=== PATIENT | male | born 1955 | race Caucasian/White ===

== ENCOUNTER 2016-12-11 19:35 | Inpatient (IN) | payer OTHER ==
[~2016-12-11] VITALS: Ht 172.7 cm; Wt 100.0 kg
[~2016-12-11 19:35] MED LIST: APIX5TAB PO; FOLI-49 PO; METO-448 PO; VIT1TABL85 PO
[2016-12-11 21:45] VITALS: BP 119/86; RESP 17
[2016-12-11 22:00] VITALS: Ht 172.7 cm; Wt 100.0 kg
[2016-12-11] MEDS: SENNA TAB PO SCH (22:00)
[2016-12-11] MEDS ORDERED: LACTULOSE 30ML CUP PO PRN (22:00)
[2016-12-11] MEDS ORDERED: MAGNESIUM HYDROXIDE 30ML CUP PO PRN (22:00)
[2016-12-11] MEDS ORDERED: ACETAMINOPHEN 325 MG TAB PO PRN (22:00)
[2016-12-11] MEDS ORDERED: BISACODYL 10 MG SUPP PR PRN (22:00)
[2016-12-11] MEDS: DOCUSATE SODIUM 100 MG CAP PO SCH (22:02)
[2016-12-11] MEDS: MYCOPHENOLATE 250 MG CAP PO SCH (22:03)
[2016-12-11] MEDS: PYRIDOSTIGMINE 60 MG TAB PO SCH (22:03)
[2016-12-11] MEDS: APIXABAN 5 MG TABLET PO SCH (22:03)
[2016-12-11 23:48] LABS: ADD UMIC YES; UR BILIRUBIN (Dip) NEGATIVE (NEGATIVE); UR BLOOD (Dip) TRACE (NEGATIVE); UR CLARITY CLEAR (CLEAR); UR COLOR LT. YELLOW (YELLOW); UR GLUCOSE (Dip) NEGATIVE (NEGATIVE); UR KETONES (Dip) NEGATIVE (NEGATIVE); UR LEUKOCYTE ESTERASE (Dip) NEGATIVE (NEGATIVE); UR NITRITE (Dip) NEGATIVE (NEGATIVE); UR TOTAL PROTEIN (Dip) NEGATIVE (NEGATIVE); UR UROBILINOGEN (Dip) 0.2 E.U./dL (0.1-1.0)
[2016-12-12 00:42] LABS: URINE RBCS 0-2 /HPF (0)
[2016-12-12 07:30] VITALS: BP 122/83; RESP 18
[2016-12-12 08:08] LABS: ADD SCAN DIFF NO
[2016-12-12 08:11] LABS: BASOPHILS % 0.1 % (0.0-2.0); EOSINOPHILS # 0.1 10^3/ul (0.0-0.5); EOSINOPHILS % 0.7 % (0.0-7.0); HEMATOCRIT 41.8 % (42.0-52.0); HEMOGLOBIN 13.9 g/dl (14.0-18.0); LYMPHOCYTES # 2.7 10^3/ul (0.8-2.9); LYMPHOCYTES % 27.2 % (15.0-51.0); MEAN CORPUSCULAR HEMOGLOBIN 28.4 pg (29.0-33.0); MEAN CORPUSCULAR HGB CONC 33.3 g/dl (32.0-37.0); MEAN CORPUSCULAR VOLUME 85.5 fl (82.0-101.0); MEAN PLATELET VOLUME 12.2 fl (7.4-10.4); MONOCYTE # 0.7 10^3/ul (0.3-0.9); MONOCYTES % 7.1 % (0.0-11.0); NEUTROPHIL # 6.3 10^3/ul (1.6-7.5); NEUTROPHILS % 63.6 % (39.0-77.0); PLATELET COUNT 149 10^3/UL (140-415); RED BLOOD COUNT 4.89 10^6/ul (4.70-6.10); RED CELL DISTRIBUTION WIDTH 13.7 % (11.5-14.5)
[2016-12-12 08:31] LABS: ALBUMIN 3.6 g/dl (3.3-4.9); ALBUMIN/GLOBULIN RATIO 1.05; BILIRUBIN,INDIRECT 0.2 mg/dl (0-1.1); BILIRUBIN,TOTAL 0.2 mg/dl (0.2-1.3); CALCIUM 9.2 mg/dl (8.4-10.2); CREATININE 0.68 mg/dl (0.61-1.24); POTASSIUM 3.8 mmol/L (3.5-5.1)
[2016-12-12] MEDS: DOCUSATE SODIUM 100 MG CAP PO SCH ×2 (08:43→21:00)
[2016-12-12] MEDS: predniSONE 10 MG TAB PO SCH (08:43)
[2016-12-12] MEDS: APIXABAN 5 MG TABLET PO SCH ×2 (08:43→21:10)
[2016-12-12] MEDS: CHOLECALCIFEROL 1,000 UNIT TAB PO SCH (08:43)
[2016-12-12] MEDS: MYCOPHENOLATE 250 MG CAP PO SCH ×2 (08:43→21:09)
[2016-12-12] MEDS: PYRIDOSTIGMINE 60 MG TAB PO SCH ×4 (08:43→21:10)
[2016-12-12] MEDS: METOPROLOL (XL) 100 MG TAB PO SCH (08:44)
[2016-12-12] MEDS: DIGOXIN 0.125 MG TAB PO SCH (13:17)
--- NOTE | 2016-12-12 13:47 | CONS ---
DATE OF ADMISSION: 12/11/2016 DATE OF CONSULTATION: 12/12/2016 TYPE OF CONSULTATION: Rehabilitation Post-Admission Physician Evaluation REHABILITATION IMPAIRMENT CATEGORY: Myasthenia gravis. ACTIVE COMORBIDITIES: 1. Status post fall with blunt head trauma. 2. Atrial fibrillation, status post ablation. 3. Dysphagia. 4. History of right total hip replacement. 5. History of ankle fracture. 6. Impairments in self-care and mobility. HISTORY OF PRESENT ILLNESS: The patient is a 61-year-old right-handed gentleman who has a history of atrial fibrillation with recent ablation, who was admitted with increased shortness of breath, dysarthria, dysphagia and ptosis. Workup was consistent with myasthenia gravis. The patient did receive a course of IVIG. The patient's hospital course was also notable for his atrial fibrillation and ablation. The patient reportedly had 2 falls in the hospital with blunt head trauma and head CT negative for bleed. The patient has now been cleared to transfer to the rehabilitation unit for comprehensive interdisciplinary rehab care. FUNCTIONAL HISTORY: Prior to recent events, he was independent in self-care tasks and mobility. Currently, the patient requires minimal assist for self- care and mobility tasks. SOCIAL HISTORY: The patient lives at home and hopes to return there upon discharge. PAST MEDICAL HISTORY: 1. Atrial fibrillation, status post ablation. 2. Asthma. 3. History of right hip replacement. 4. History of ankle surgery. CURRENT MEDICATIONS: 1. Cholecalciferol 1000 units p.o. daily. 2. Metoprolol 200 mg p.o. daily. 3. Prednisone 10 mg p.o. daily. 4. Pyridostigmine 60 mg p.o. q.i.d. 5. Digoxin 125 mcg p.o. daily. 6. Colace 100 mg p.o. b.i.d. ALLERGIES: THE PATIENT WITH NO KNOWN DRUG ALLERGIES. PHYSICAL EXAMINATION: VITAL SIGNS: The patient is currently afebrile with stable vital signs. HEENT: Extraocular motions are intact. Oropharynx is clear. NECK: Supple. LUNGS: Clear anteriorly. CARDIAC: S1, S2. ABDOMEN: Soft, nontender, positive bowel sounds. NEUROLOGIC: He is awake and alert. He is oriented to person, hospital and date. He can follow simple 1-step commands. He demonstrates antigravity strength in bilateral upper extremity and lower extremity. He does have some impaired dynamic balance. PLAN: The patient has been admitted for comprehensive interdisciplinary acute rehab and is anticipated to tolerate 3 hours of daily therapy in divided doses for at least 5/7 days a week. Treatment plan will include: 1. Physical therapy to focus on bed mobility, transfers, and household ambulation with the goal of having the patient reach standby assist level. 2. Occupational therapy to focus on hygiene, grooming, dressing, bathing, and toileting activities with the goal of having the patient reach standby assist level. 3. Rehabilitation nursing for carryover of therapeutic interventions, the goal of continent of bowel and bladder, and the goal of patient education with regards to the aforementioned issues. Of note, patient reports he does have some urinary frequency. We will obtain bladder scan and monitor PVRs and I and O catheterization p.r.n. 4. Speech Therapy for dysphagia management ESTIMATED LENGTH OF STAY: 1 week. DISPOSITION GOAL: Home. Rehabilitation Barrier: balance Intervention: Interdisciplinary rehabilitation I acknowledge that I performed a full physical examination on this patient within 24 hours of admission to the rehabilitation unit. I believe the patient is a good candidate for comprehensive interdisciplinary rehab care and is anticipated to make reasonable goals in a reasonable period of time as outlined above. Dictated By: MAURICE SAMUELS/ERIN Conf#: [id number] DID#: [id number] MTDD
--- NOTE | 2016-12-12 14:43 | HP ---
Date/Time of Note Date/Time of Note DATE: 12/12/16 TIME: 14:38 Assessment/Plan VTE Prophylaxis VTE Prophylaxis Intervention: anti-embolic stocking Lines/Catheters Urinary Cath still in place: No Assessment/Plan Chief Complaint/Hosp Course 1. Myasthenia gravis 2. Obesity 3. Hypertension 4. Anemia 5. Atrial fibrillation, controlled status post ablation. 6. HS Asthma. 7. History of right hip replacement. 8. History of ankle surgery. Problems: Assessment/Plan 1. Continue Physical therapy 2. Medical regime unchanged 3. PSA level and US prostate to check HPI/ROS Admit Date/Time Admit Date/Time Dec 11, 2016 at 20:00 Hx of Present Illness 61 years old pt was transferred from outside hospital with new diagnosis Myasthenia Gravis after he was seen there with severe weakness and ptosis. The patient had 2 falls in the hospital with blunt head trauma. He has a history of atrial fibrillation with recent ablation. The patient did receive a course of IVIG. ROS Constitutional: fatigue, improved ENT: no complaints Genitourinary: other (urinating every hour) Neurologic: headache PMH/Family/Social Past Medical History Medical History: congestive heart failure, hypertension (s/p ablation), other ( afib) Past Surgical History Past Surgical Hx: noncontributory Family History Significant Family History: no pertinent family hx Social History Alcohol Use: rarely Smoking Status: Former smoker Drug Use: none Exam/Review of Systems Vital Signs Vitals Vital Signs Date Time Temp Pulse Resp B/P Pulse Ox O2 Delivery O2 Flow Rate FiO2 12/12/16 07:30 98.9 18 122/83 98 12/11/16 21:45 98 Intake and Output 12/11/16 12/11/16 12/12/16 15:00 23:00 07:00 Intake Total 350 ml Output Total 1350 ml Balance -1000 ml Exam Constitutional: alert, oriented Psych: nl mood/affect, no complaints Head: normocephalic Eyes: nl conjunctiva ENMT: nl external ears & nose Neck: supple Genitourinary - Male: nl scrotum Labs Result Diagram: 12/12/1662112/12/16621 Medications Medications Current Medications Cholecalciferol (Vitamin D) 1,000 unit DAILY PO Last administered on 12/12/16t 08:43; Admin Dose 1,000 UNIT; Start 12/12/16 at 09:00 Metoprolol Succinate (Toprol Xl) 200 mg DAILY PO Last administered on 12/12/16 08:44; Admin Dose 200 MG; Start 12/12/16 at 09:00 Mycophenolate Mofetil (Cellcept) 500 mg BID@08,20 PO Last administered on 08:43; Admin Dose 500 MG; Start 12/11/16 at 22:00 Prednisone (Prednisone) 10 mg DAILY PO Last administered on 12/12/16 08:43; Admin Dose 10 MG; Start 12/12/16 at 09:00 Pyridostigmine [place] (Mestinon) 60 mg QID PO Last administered on 12/12/16 13 :17; Admin Dose 60 MG; Start 12/11/16 at 22:00 Apixaban (Eliquis) 5 mg BID PO Last administered on 12/12/16 08:43; Admin Dose 5 MG; Start 12/11/16 at 22:00 Digoxin (Digoxin) 0.125 mg DAILY@13 PO Last administered on 12/12/16 13:17; Admin Dose 0.125 MG; Start 12/12/16 at 13:00 Docusate Sodium (Colace) 100 mg BID PO Last administered on 12/12/16 08:43; Admin Dose 100 MG; Start 12/11/16 at 22:00 Senna (Senokot) 1 tab HS PO ; Start 12/11/16 at 22:00 Acetaminophen (Tylenol Tab) 650 mg Q4H PRN PO PAIN; Start 12/11/16 at 22:00 Bisacodyl (Dulcolax Supp) 10 mg DAILY PRN [place] CONSTIPATION; Start 12/11/16 at 22: 00 Magnesium Hydroxide (Milk Of Mag) 30 ml BID PRN PO CONSTIPATION; Start 12/11/16 at 22:00 Lactulose (Enulose) 20 gm DAILY PRN PO CONSTIPATION; Start 12/11/16 at 22:00 Ferrous Sulfate (Ferrous Sulfate (Ec)) 325 mg DAILY@21 PO ; Start 12/12/16 at 21: 00 PARKER LAMBERT Dec 12, 2016 14:43
[2016-12-12 20:05] VITALS: BP 114/79; RESP 20
[2016-12-12] MEDS: SENNA TAB PO SCH (21:00)
[2016-12-12] MEDS ORDERED: FERROUS SULFATE (EC) 325 MG TAB PO SCH (21:00)
[2016-12-12] MEDS: FERROUS SULFATE (EC) 325 MG TAB PO SCH (21:10)
[2016-12-13] MEDS: MYCOPHENOLATE 250 MG CAP PO SCH ×2 (08:11→21:12)
[2016-12-13] MEDS: METOPROLOL (XL) 100 MG TAB PO SCH (08:12)
[2016-12-13] MEDS: APIXABAN 5 MG TABLET PO SCH ×2 (08:12→21:12)
[2016-12-13] MEDS: CHOLECALCIFEROL 1,000 UNIT TAB PO SCH (08:12)
[2016-12-13 08:13] VITALS: BP 113/79; RESP 18
[2016-12-13] MEDS: PYRIDOSTIGMINE 60 MG TAB PO SCH ×4 (08:13→21:12)
[2016-12-13] MEDS: predniSONE 10 MG TAB PO SCH (08:13)
[2016-12-13] MEDS: DOCUSATE SODIUM 100 MG CAP PO SCH ×2 (08:13→21:00)
[2016-12-13 08:14] VITALS: BP 111/68; PULSE 108; RESP 18
[2016-12-13 08:37] LABS: ADD SCAN DIFF NO
[2016-12-13 08:53] LABS: BASOPHILS % 0.3 % (0.0-2.0); EOSINOPHILS # 0.1 10^3/ul (0.0-0.5); EOSINOPHILS % 0.5 % (0.0-7.0); HEMATOCRIT 44.2 % (42.0-52.0); HEMOGLOBIN 14.6 g/dl (14.0-18.0); LYMPHOCYTES # 2.4 10^3/ul (0.8-2.9); LYMPHOCYTES % 23.9 % (15.0-51.0); MEAN CORPUSCULAR HEMOGLOBIN 28.1 pg (29.0-33.0); MEAN CORPUSCULAR VOLUME 85.2 fl (82.0-101.0); MEAN PLATELET VOLUME 11.6 fl (7.4-10.4); MONOCYTE # 0.6 10^3/ul (0.3-0.9); MONOCYTES % 5.6 % (0.0-11.0); NEUTROPHILS % 68.6 % (39.0-77.0); PLATELET COUNT 161 10^3/UL (140-415); RED BLOOD COUNT 5.19 10^6/ul (4.70-6.10); RED CELL DISTRIBUTION WIDTH 13.9 % (11.5-14.5); WHITE BLOOD COUNT 10.2 10^3/ul (4.8-10.8)
[2016-12-13 09:04] LABS: CALCIUM 9.1 mg/dl (8.4-10.2); CREATININE 0.81 mg/dl (0.61-1.24); POTASSIUM 3.5 mmol/L (3.5-5.1)
--- NOTE | 2016-12-13 11:58 | PN ---
Date/Time of Note Date/Time of Note DATE: 12/13/16 TIME: 11:57 Assessment/Plan VTE Prophylaxis VTE Prophylaxis Intervention: ambulation Lines/Catheters Urinary Cath still in place: No Assessment/Plan Chief Complaint/Hosp Course 1. Myasthenia gravis 2. Obesity 3. Hypertension 4. Anemia 5. Atrial fibrillation, controlled status post ablation. 6. HS Asthma. 7. History of right hip replacement. 8. History of ankle surgery. Problems: Assessment/Plan 1. US prostate PSA 3.6, start flomax 0/4 mg by mouth Subjective 24 Hr Interval Summary Constitutional: improved, no complaints Exam/Review of Systems Vital Signs Vitals Vital Signs Date Time Temp Pulse Resp B/P Pulse Ox O2 Delivery O2 Flow Rate FiO2 12/13/16 08:14 108 18 111/68 97 12/13/16 08:13 97.8 Intake and Output 12/12/16 12/12/16 12/13/16 15:00 23:00 07:00 Intake Total 820 ml 350 ml Output Total 1225 ml Balance 820 ml -875 ml Exam Constitutional: alert, oriented ENMT: nl external ears & nose Neck: non-tender, supple Respiratory: clear to auscultation Cardiovascular: regular rate and rhythm Musculoskeletal: other (slow) Results Result Diagram: 12/13/16 0820 12/13/16 0830 Results 24 hrs Laboratory Tests Test 12/13/16 08:20 12/13/16 08:30 White Blood Count 10.2 Red Blood Count 5.19 Hemoglobin 14.6 Hematocrit 44.2 Mean Corpuscular Volume 85.2 Mean Corpuscular Hemoglobin 28.1 L Mean Corpuscular Hemoglobin Concent 33.0 Red Cell Distribution Width 13.9 Platelet Count 161 Mean Platelet Volume 11.6 H Neutrophils % 68.6 Lymphocytes % 23.9 Monocytes % 5.6 Eosinophils % 0.5 Basophils % 0.3 Nucleated Red Blood Cells % 0.0 Neutrophils # 7.0 Lymphocytes # 2.4 Monocytes # 0.6 Eosinophils # 0.1 Basophils # 0.0 Nucleated Red Blood Cells # 0.0 Sodium Level 140 Potassium Level 3.5 Chloride Level 108 Carbon Dioxide Level 26 Anion Gap 10 Blood Urea Nitrogen 15 Creatinine 0.81 Glucose Level 134 # Calcium Level 9.1 Prostate Specific Antigen 3.6 Medications Medications Current Medications Cholecalciferol (Vitamin D) 1,000 unit DAILY PO Last administered on 12/13/16 08:12; Admin Dose 1,000 UNIT; Start 12/12/16 at 09:00 Metoprolol Succinate (Toprol Xl) 200 mg DAILY PO Last administered on 08:12; Admin Dose 200 MG; Start 12/12/16 at 09:00 Mycophenolate Mofetil (Cellcept) 500 mg BID@08,20 PO Last administered on 08:11; Admin Dose 500 MG; Start 12/11/16 at 22:00 Prednisone (Prednisone) 10 mg DAILY PO Last administered on 12/13/16 08:13; Admin Dose 10 MG; Start 12/12/16 at 09:00 Pyridostigmine [place] (Mestinon) 60 mg QID PO Last administered on 12/13/16 08:13; Admin Dose 60 MG; Start 12/11/16 at 22:00 Apixaban (Eliquis) 5 mg BID PO Last administered on 12/13/16 08:12; Admin Dose 5 MG; Start 12/11/16 at 22:00 Digoxin (Digoxin) 0.125 mg DAILY@13 PO Last administered on 12/12/16 13:17; Admin Dose 0.125 MG; Start 12/12/16 at 13:00 Docusate Sodium (Colace) 100 mg BID PO Last administered on 12/12/16 08:43; Admin Dose 100 MG; Start 12/11/16 at 22:00 Senna (Senokot) 1 tab HS PO ; Start 12/11/16 at 22:00 Acetaminophen (Tylenol Tab) 650 mg Q4H PRN PO PAIN; Start 12/11/16 at 22:00 Bisacodyl (Dulcolax Supp) 10 mg DAILY PRN [place] CONSTIPATION; Start 12/11/16 at 22: 00 Magnesium Hydroxide (Milk Of Mag) 30 ml BID PRN PO CONSTIPATION; Start 12/11/16 at 22:00 Lactulose (Enulose) 20 gm DAILY PRN PO CONSTIPATION; Start 12/11/16 at 22:00 Ferrous Sulfate (Ferrous Sulfate (Ec)) 325 mg DAILY@21 PO Last administered on 12/12/16 21:10; Admin Dose 325 MG; Start 12/12/16 at 21:00 Tamsulosin HCl (Flomax) 0.4 mg HS PO ; Start 12/13/16 at 21:00 PARKER LAMBERT Dec 13, 2016 11:58
--- NOTE | 2016-12-13 12:05 | CONS ---
Date/Time of Note Date/Time of Note DATE: 12/13/16 TIME: 12:05 Consult Date/Type/Reason Admit Date/Time Dec 11, 2016 at 20:00 Initial Consult Date Objective Vital Signs Date Time Temp Pulse Resp B/P Pulse Ox O2 Delivery O2 Flow Rate FiO2 12/13/16 08:14 108 18 111/68 97 12/13/16 08:13 97.8 Intake and Output 12/12/16 12/12/16 12/13/16 15:00 23:00 07:00 Intake Total 820 ml 350 ml Output Total 1225 ml Balance 820 ml -875 ml Results/Medications Result Diagram: 12/13/16 0820 12/13/16 0830 Results 24 hrs Laboratory Tests Test 12/13/16 08:20 12/13/16 08:30 White Blood Count 10.2 Red Blood Count 5.19 Hemoglobin 14.6 Hematocrit 44.2 Mean Corpuscular Volume 85.2 Mean Corpuscular Hemoglobin 28.1 L Mean Corpuscular Hemoglobin Concent 33.0 Red Cell Distribution Width 13.9 Platelet Count 161 Mean Platelet Volume 11.6 H Neutrophils % 68.6 Lymphocytes % 23.9 Monocytes % 5.6 Eosinophils % 0.5 Basophils % 0.3 Nucleated Red Blood Cells % 0.0 Neutrophils # 7.0 Lymphocytes # 2.4 Monocytes # 0.6 Eosinophils # 0.1 Basophils # 0.0 Nucleated Red Blood Cells # 0.0 Sodium Level 140 Potassium Level 3.5 Chloride Level 108 Carbon Dioxide Level 26 Anion Gap 10 Blood Urea Nitrogen 15 Creatinine 0.81 Glucose Level 134 # Calcium Level 9.1 Prostate Specific Antigen 3.6 Medications Current Medications Cholecalciferol (Vitamin D) 1,000 unit DAILY PO Last administered on 12/13/16 08:12; Admin Dose 1,000 UNIT; Start 12/12/16 at 09:00 Metoprolol Succinate (Toprol Xl) 200 mg DAILY PO Last administered on 08:12; Admin Dose 200 MG; Start 12/12/16 at 09:00 Mycophenolate Mofetil (Cellcept) 500 mg BID@08,20 PO Last administered on 08:11; Admin Dose 500 MG; Start 12/11/16 at 22:00 Prednisone (Prednisone) 10 mg DAILY PO Last administered on 12/13/16 08:13; Admin Dose 10 MG; Start 12/12/16 at 09:00 Pyridostigmine [place] (Mestinon) 60 mg QID PO Last administered on 12/13/16 08:13; Admin Dose 60 MG; Start 12/11/16 at 22:00 Apixaban (Eliquis) 5 mg BID PO Last administered on 12/13/16 08:12; Admin Dose 5 MG; Start 12/11/16 at 22:00 Digoxin (Digoxin) 0.125 mg DAILY@13 PO Last administered on 12/12/16 13:17; Admin Dose 0.125 MG; Start 12/12/16 at 13:00 Docusate Sodium (Colace) 100 mg BID PO Last administered on 12/12/16 08:43; Admin Dose 100 MG; Start 12/11/16 at 22:00 Senna (Senokot) 1 tab HS PO ; Start 12/11/16 at 22:00 Acetaminophen (Tylenol Tab) 650 mg Q4H PRN PO PAIN; Start 12/11/16 at 22:00 Bisacodyl (Dulcolax Supp) 10 mg DAILY PRN [place] CONSTIPATION; Start 12/11/16 at 22: 00 Magnesium Hydroxide (Milk Of Mag) 30 ml BID PRN PO CONSTIPATION; Start 12/11/16 at 22:00 Lactulose (Enulose) 20 gm DAILY PRN PO CONSTIPATION; Start 12/11/16 at 22:00 Ferrous Sulfate (Ferrous Sulfate (Ec)) 325 mg DAILY@21 PO Last administered on 12/12/16 21:10; Admin Dose 325 MG; Start 12/12/16 at 21:00 Tamsulosin HCl (Flomax) 0.4 mg HS PO ; Start 12/13/16 at 21:00 Assessment/Plan Additional Assessment/Plan Rehab - Myasthenia gravis. Continue rehab Status post fall with blunt head trauma. Atrial fibrillation, status post ablation. Dysphagia. History of right total hip replacement. History of ankle fracture. MAURICE OSBORNE MD Dec 13, 2016 12:05
[2016-12-13] MEDS: DIGOXIN 0.125 MG TAB PO SCH (12:17)
[2016-12-13 12:18] VITALS: BP 115/87; PULSE 66; RESP 16
--- NOTE | 2016-12-13 14:34 | RADRPT ---
PROCEDURE: US male Pelvis. CLINICAL INDICATION: Prostate enlargement, filling bladder @ 1240, nwc TECHNIQUE: Multiple sonographic images of the pelvis were obtained. The images were reviewed on a PACS workstation. COMPARISON: None. FINDINGS: The prostate is enlarged in size measuring 5.4 x 3.8 x 4.8 cm. The prostatic volume is 52 cc. The bladder is grossly unremarkable. IMPRESSION: Enlarged prostate with a volume of 52 cc. Physician Billie Date Time Electronically viewed and signed by Physician Billie on 12/13/2016 14:33 RA/
[2016-12-13 20:00] VITALS: BP 112/70; RESP 20
[2016-12-13] MEDS: SENNA TAB PO SCH (21:00)
[2016-12-13] MEDS: TAMSULOSIN (SR) 0.4 MG CAP PO SCH (21:12)
[2016-12-13] MEDS: FERROUS SULFATE (EC) 325 MG TAB PO SCH (21:12)
[2016-12-14 08:00] VITALS: BP 114/77; PULSE 105; RESP 18
[2016-12-14] MEDS: APIXABAN 5 MG TABLET PO SCH ×2 (08:21→20:21)
[2016-12-14] MEDS: MYCOPHENOLATE 250 MG CAP PO SCH ×2 (08:21→20:21)
[2016-12-14] MEDS: predniSONE 10 MG TAB PO SCH (08:22)
[2016-12-14] MEDS: PYRIDOSTIGMINE 60 MG TAB PO SCH ×4 (08:23→20:21)
[2016-12-14] MEDS: CHOLECALCIFEROL 1,000 UNIT TAB PO SCH (08:23)
[2016-12-14] MEDS: METOPROLOL (XL) 100 MG TAB PO SCH (08:23)
[2016-12-14] MEDS: DOCUSATE SODIUM 100 MG CAP PO SCH ×2 (09:00→20:21)
[2016-12-14] MEDS: DIGOXIN 0.125 MG TAB PO SCH (13:06)
[2016-12-14] MEDS: TAMSULOSIN (SR) 0.4 MG CAP PO SCH (20:21)
[2016-12-14] MEDS: SENNA TAB PO SCH (20:21)
[2016-12-14] MEDS: FERROUS SULFATE (EC) 325 MG TAB PO SCH (20:21)
[2016-12-14 20:57] VITALS: BP 134/85; RESP 18
[2016-12-15 07:30] VITALS: BP 120/78; RESP 18
[2016-12-15] MEDS: PYRIDOSTIGMINE 60 MG TAB PO SCH ×4 (07:40→22:11)
[2016-12-15] MEDS: MYCOPHENOLATE 250 MG CAP PO SCH ×2 (07:40→20:21)
[2016-12-15] MEDS: predniSONE 10 MG TAB PO SCH (07:41)
[2016-12-15] MEDS: APIXABAN 5 MG TABLET PO SCH ×2 (07:41→20:21)
[2016-12-15] MEDS: CHOLECALCIFEROL 1,000 UNIT TAB PO SCH (07:42)
[2016-12-15] MEDS: METOPROLOL (XL) 100 MG TAB PO SCH (07:44)
[2016-12-15] MEDS: DOCUSATE SODIUM 100 MG CAP PO SCH ×2 (09:00→20:24)
--- NOTE | 2016-12-15 12:22 | CONS ---
Date/Time of Note Date/Time of Note DATE: 12/15/16 TIME: 12:22 Consult Date/Type/Reason Admit Date/Time Dec 11, 2016 at 20:00 Objective Vital Signs Date Time Temp Pulse Resp B/P Pulse Ox O2 Delivery O2 Flow Rate FiO2 12/14/16 20:57 97.5 81 18 134/85 96 12/14/16 08:00 Room Air Intake and Output 12/14/16 12/14/16 12/15/16 15:00 23:00 07:00 Intake Total 450 ml Balance 450 ml INTERDISCIPLINARY TEAM CONFERENCE BOWEL- Cont BLADDER-Cont SKIN- intact OT- DRESSING-s BATHING-s TOILETING-s PT- BED MOBILITY-s TRANSFERS-s AMBULATION-s 300 feet W.C. MOBILITY A/P- Interdisciplinary team conference held today. Please see interdisciplinary sheet. Working toward d.c. on 12/16 with post discharge follow up of physical therapy, occupational therapy. Results/Medications Result Diagram: 12/13/16 0820 12/13/16 0830 Medications Current Medications Cholecalciferol (Vitamin D) 1,000 unit DAILY PO Last administered on 12/15/16 07:42; Admin Dose 1,000 UNIT; Start 12/12/16 at 09:00 Metoprolol Succinate (Toprol Xl) 200 mg DAILY PO Last administered on 07:44; Admin Dose 200 MG; Start 12/12/16 at 09:00 Mycophenolate Mofetil (Cellcept) 500 mg BID@08,20 PO Last administered on 07:40; Admin Dose 500 MG; Start 12/11/16 at 22:00 Prednisone (Prednisone) 10 mg DAILY PO Last administered on 12/15/16 07:41; Admin Dose 10 MG; Start 12/12/16 at 09:00 Apixaban (Eliquis) 5 mg BID PO Last administered on 12/15/16 07:41; Admin Dose 5 MG; Start 12/11/16 at 22:00 Digoxin (Digoxin) 0.125 mg DAILY@13 PO Last administered on 12/14/16 13:06; Admin Dose 0.125 MG; Start 12/12/16 at 13:00 Docusate Sodium (Colace) 100 mg BID PO Last administered on 12/14/16 20:21; Admin Dose 100 MG; Start 12/11/16 at 22:00 Senna (Senokot) 1 tab HS PO Last administered on 12/14/16 20:21; Admin Dose 1 TAB; Start 12/11/16 at 22:00 Acetaminophen (Tylenol Tab) 650 mg Q4H PRN PO PAIN; Start 12/11/16 at 22:00 Bisacodyl (Dulcolax Supp) 10 mg DAILY PRN [place] CONSTIPATION; Start 12/11/16 at 22: 00 Magnesium Hydroxide (Milk Of Mag) 30 ml BID PRN PO CONSTIPATION; Start 12/11/16 at 22:00 Lactulose (Enulose) 20 gm DAILY PRN PO CONSTIPATION; Start 12/11/16 at 22:00 Ferrous Sulfate (Ferrous Sulfate (Ec)) 325 mg DAILY@21 PO Last administered on 12/14/16 20:21; Admin Dose 325 MG; Start 12/12/16 at 21:00 Tamsulosin HCl (Flomax) 0.4 mg HS PO Last administered on 12/14/16 20:21; Admin Dose 0.4 MG; Start 12/13/16 at 21:00 Pyridostigmine [place] (Mestinon) 60 mg QID@06,12,18,22 PO ; Start 12/15/16 at 12:00 MAURICE OSBORNE MD Dec 15, 2016 12:22 MAURICE OSBORNE MD Dec 15, 2016 12:22
[2016-12-15] MEDS: DIGOXIN 0.125 MG TAB PO SCH (12:28)
--- NOTE | 2016-12-15 17:50 | PN ---
Date/Time of Note Date/Time of Note DATE: 12/15/16 TIME: 17:49 Assessment/Plan VTE Prophylaxis VTE Prophylaxis Intervention: other Lines/Catheters Urinary Cath still in place: No Assessment/Plan Chief Complaint/Hosp Course 1. Myasthenia gravis 2. Obesity 3. Hypertension 4. Anemia 5. Atrial fibrillation,HX S/P ABLATION 6. HS Asthma. 7. History of right hip replacement. 8. History of ankle surgery PLAN PT OT Problems: Subjective 24 Hr Interval Summary Cardiovascular: no complaints Gastrointestinal: no complaints Musculoskeletal: other (WEAKNESS BETTER) Exam/Review of Systems Vital Signs Vitals Vital Signs Date Time Temp Pulse Resp B/P Pulse Ox O2 Delivery O2 Flow Rate FiO2 12/15/16 07:30 97.8 100 18 120/78 98 12/14/16 08:00 Room Air Intake and Output 12/14/16 12/14/16 12/15/16 15:00 23:00 07:00 Intake Total 450 ml Balance 450 ml Exam Neck: supple Respiratory: clear to auscultation Cardiovascular: regular rate and rhythm Gastrointestinal: soft Musculoskeletal: nl extremities to inspection Results Result Diagram: 12/13/16 0820 12/13/16 0830 Medications Medications Current Medications Cholecalciferol (Vitamin D) 1,000 unit DAILY PO Last administered on 12/15/16 07:42; Admin Dose 1,000 UNIT; Start 12/12/16 at 09:00 Metoprolol Succinate (Toprol Xl) 200 mg DAILY PO Last administered on 07:44; Admin Dose 200 MG; Start 12/12/16 at 09:00 Mycophenolate Mofetil (Cellcept) 500 mg BID@08,20 PO Last administered on 07:40; Admin Dose 500 MG; Start 12/11/16 at 22:00 Prednisone (Prednisone) 10 mg DAILY PO Last administered on 12/15/16 07:41; Admin Dose 10 MG; Start 12/12/16 at 09:00 Apixaban (Eliquis) 5 mg BID PO Last administered on 12/15/16 07:41; Admin Dose 5 MG; Start 12/11/16 at 22:00 Digoxin (Digoxin) 0.125 mg DAILY@13 PO Last administered on 12/15/16 12:28; Admin Dose 0.125 MG; Start 12/12/16 at 13:00 Docusate Sodium (Colace) 100 mg BID PO Last administered on 12/14/16 20:21; Admin Dose 100 MG; Start 12/11/16 at 22:00 Senna (Senokot) 1 tab HS PO Last administered on 12/14/16 20:21; Admin Dose 1 TAB; Start 12/11/16 at 22:00 Acetaminophen (Tylenol Tab) 650 mg Q4H PRN PO PAIN; Start 12/11/16 at 22:00 Bisacodyl (Dulcolax Supp) 10 mg DAILY PRN [place] CONSTIPATION; Start 12/11/16 at 22: 00 Magnesium Hydroxide (Milk Of Mag) 30 ml BID PRN PO CONSTIPATION; Start 12/11/16 at 22:00 Lactulose (Enulose) 20 gm DAILY PRN PO CONSTIPATION; Start 12/11/16 at 22:00 Ferrous Sulfate (Ferrous Sulfate (Ec)) 325 mg DAILY@21 PO Last administered on 12/14/16 20:21; Admin Dose 325 MG; Start 12/12/16 at 21:00 Tamsulosin HCl (Flomax) 0.4 mg HS PO Last administered on 12/14/16 20:21; Admin Dose 0.4 MG; Start 12/13/16 at 21:00 Pyridostigmine [place] (Mestinon) 60 mg QID@06,,18,22 PO Last administered on 12/15/16 17:42; Admin Dose 60 MG; Start 12/15/16 at 12:00 ALISHA STILL MD Dec 15, 2016 17:50
--- NOTE | 2016-12-15 17:51 | PN ---
Date/Time of Note Date/Time of Note DATE: 12/15/16 TIME: 17:50 Assessment/Plan VTE Prophylaxis VTE Prophylaxis Intervention: other Lines/Catheters Urinary Cath still in place: No Assessment/Plan Chief Complaint/Hosp Course 1. Myasthenia gravis BETTER 2. DECONDITIONING 3. Hypertension 4. Anemia 5. Atrial fibrillation,HX S/P ABLATION 6. HS Asthma. 7. History of right hip replacement. 8. History of ankle surgery PLAN PT OT Problems: Subjective 24 Hr Interval Summary Subjective hx not possible: other (PT SEEN QD NOTE MISSED ) Exam/Review of Systems Vital Signs Vitals Vital Signs Date Time Temp Pulse Resp B/P Pulse Ox O2 Delivery O2 Flow Rate FiO2 12/15/16 07:30 97.8 100 18 120/78 98 12/14/16 08:00 Room Air Intake and Output 12/14/16 12/14/16 12/15/16 15:00 23:00 07:00 Intake Total 450 ml Balance 450 ml Exam Respiratory: clear to auscultation Cardiovascular: regular rate and rhythm Gastrointestinal: soft Musculoskeletal: nl extremities to inspection Extremities: normal pulses Results Result Diagram: 12/13/16 0820 12/13/16 0830 Medications Medications Current Medications Cholecalciferol (Vitamin D) 1,000 unit DAILY PO Last administered on 12/15/16 07:42; Admin Dose 1,000 UNIT; Start 12/12/16 at 09:00 Metoprolol Succinate (Toprol Xl) 200 mg DAILY PO Last administered on 07:44; Admin Dose 200 MG; Start 12/12/16 at 09:00 Mycophenolate Mofetil (Cellcept) 500 mg BID@08,20 PO Last administered on 07:40; Admin Dose 500 MG; Start 12/11/16 at 22:00 Prednisone (Prednisone) 10 mg DAILY PO Last administered on 12/15/16 07:41; Admin Dose 10 MG; Start 12/12/16 at 09:00 Apixaban (Eliquis) 5 mg BID PO Last administered on 12/15/16 07:41; Admin Dose 5 MG; Start 12/11/16 at 22:00 Digoxin (Digoxin) 0.125 mg DAILY@13 PO Last administered on 12/15/16 12:28; Admin Dose 0.125 MG; Start 12/12/16 at 13:00 Docusate Sodium (Colace) 100 mg BID PO Last administered on 12/14/16 20:21; Admin Dose 100 MG; Start 12/11/16 at 22:00 Senna (Senokot) 1 tab HS PO Last administered on 12/14/16 20:21; Admin Dose 1 TAB; Start 12/11/16 at 22:00 Acetaminophen (Tylenol Tab) 650 mg Q4H PRN PO PAIN; Start 12/11/16 at 22:00 Bisacodyl (Dulcolax Supp) 10 mg DAILY PRN [place] CONSTIPATION; Start 12/11/16 at 22: 00 Magnesium Hydroxide (Milk Of Mag) 30 ml BID PRN PO CONSTIPATION; Start 12/11/16 at 22:00 Lactulose (Enulose) 20 gm DAILY PRN PO CONSTIPATION; Start 12/11/16 at 22:00 Ferrous Sulfate (Ferrous Sulfate (Ec)) 325 mg DAILY@21 PO Last administered on 12/14/16 20:21; Admin Dose 325 MG; Start 12/12/16 at 21:00 Tamsulosin HCl (Flomax) 0.4 mg HS PO Last administered on 12/14/16 20:21; Admin Dose 0.4 MG; Start 12/13/16 at 21:00 Pyridostigmine [place] (Mestinon) 60 mg QID@06,12,18,22 PO Last administered on 12/15/16 17:42; Admin Dose 60 MG; Start 12/15/16 at 12:00 ALISHA STILL MD Dec 15, 2016 17:51
[2016-12-15 20:10] VITALS: BP 126/85; RESP 18
[2016-12-15] MEDS: TAMSULOSIN (SR) 0.4 MG CAP PO SCH (20:21)
[2016-12-15] MEDS: FERROUS SULFATE (EC) 325 MG TAB PO SCH (20:21)
[2016-12-15] MEDS: SENNA TAB PO SCH (20:24)
[2016-12-16] MEDS: PYRIDOSTIGMINE 60 MG TAB PO SCH ×2 (05:27→12:26)
[2016-12-16] MEDS: predniSONE 10 MG TAB PO SCH (08:11)
[2016-12-16] MEDS: DOCUSATE SODIUM 100 MG CAP PO SCH (08:12)
[2016-12-16] MEDS: MYCOPHENOLATE 250 MG CAP PO SCH (08:12)
[2016-12-16] MEDS: APIXABAN 5 MG TABLET PO SCH (08:12)
[2016-12-16] MEDS: METOPROLOL (XL) 100 MG TAB PO SCH (08:12)
[2016-12-16] MEDS: CHOLECALCIFEROL 1,000 UNIT TAB PO SCH (08:13)
[2016-12-16 08:25] VITALS: BP 140/86; RESP 18
--- NOTE | 2016-12-16 09:44 | DS ---
DATE OF ADMISSION: 12/11/2016 DATE OF DISCHARGE: 12/16/2016 ADMISSION DIAGNOSES: 1. Myasthenia gravis. 2. Status post fall with blunt head trauma. 3. Atrial fibrillation, status post ablation. 4. Dysphagia. 5. History of right total hip replacement. 6. History of ankle fracture. 7. Impairments in self-care and mobility. DISCHARGE DIAGNOSES: 1. Myasthenia gravis. 2. Status post fall with blunt head trauma. 3. Atrial fibrillation, status post ablation. 4. Dysphagia. 5. History of right total hip replacement. 6. History of ankle fracture. 7. Improvements in self-care and mobility. HOSPITAL COURSE: The patient was admitted for comprehensive interdisciplinary acute rehab and made excellent functional gains during the course of the stay. The patient progressed from an initial mi nimal assist for self-care and mobility tasks and progressed to the point of modified independent fo r all areas of self-care and mobility, including ambulating over 300 feet with the use of a front-wh eel walker. The patient is being discharged home with recommendation of home health physical therap y and occupational therapy followup. DISCHARGE MEDICATIONS: Per the medication reconciliation sheet. CONDITION ON DISCHARGE: Stable. Dictated By: MAURICE SAMUELS/ERIN Conf#: [id number] DID#: [id number]
--- NOTE | 2016-12-16 12:09 | CONS ---
Date/Time of Note Date/Time of Note DATE: 12/16/16 TIME: 12:09 Consult Date/Type/Reason Admit Date/Time Dec 11, 2016 at 20:00 Objective Vital Signs Date Time Temp Pulse Resp B/P Pulse Ox O2 Delivery O2 Flow Rate FiO2 12/16/16 08:25 97.9 100 18 140/86 96 12/14/16 08:00 Room Air Intake and Output 12/15/16 12/15/16 12/16/16 15:00 23:00 07:00 Intake Total 320 ml 650 ml Balance 320 ml 650 ml Results/Medications Result Diagram: 12/13/16 0820 12/13/16 0830 Medications Current Medications Cholecalciferol (Vitamin D) 1,000 unit DAILY PO Last administered on 12/16/16 08:13; Admin Dose 1,000 UNIT; Start 12/12/16 at 09:00 Metoprolol Succinate (Toprol Xl) 200 mg DAILY PO Last administered on 08:12; Admin Dose 200 MG; Start 12/12/16 at 09:00 Mycophenolate Mofetil (Cellcept) 500 mg BID@08,20 PO Last administered on 08:12; Admin Dose 500 MG; Start 12/11/16 at 22:00 Prednisone (Prednisone) 10 mg DAILY PO Last administered on 12/16/16 08:11; Admin Dose 10 MG; Start 12/12/16 at 09:00 Apixaban (Eliquis) 5 mg BID PO Last administered on 12/16/16 08:12; Admin Dose 5 MG; Start 12/11/16 at 22:00 Digoxin (Digoxin) 0.125 mg DAILY@13 PO Last administered on 12/15/16 12:28; Admin Dose 0.125 MG; Start 12/12/16 at 13:00 Docusate Sodium (Colace) 100 mg BID PO Last administered on 12/16/16 08:12; Admin Dose 100 MG; Start 12/11/16 at 22:00 Senna (Senokot) 1 tab HS PO Last administered on 12/14/16 20:21; Admin Dose 1 TAB; Start 12/11/16 at 22:00 Acetaminophen (Tylenol Tab) 650 mg Q4H PRN PO PAIN; Start 12/11/16 at 22:00 Bisacodyl (Dulcolax Supp) 10 mg DAILY PRN [place] CONSTIPATION; Start 12/11/16 at 22: 00 Magnesium Hydroxide (Milk Of Mag) 30 ml BID PRN PO CONSTIPATION; Start 12/11/16 at 22:00 Lactulose (Enulose) 20 gm DAILY PRN PO CONSTIPATION; Start 12/11/16 at 22:00 Ferrous Sulfate (Ferrous Sulfate (Ec)) 325 mg DAILY@21 PO Last administered on 12/15/16 20:21; Admin Dose 325 MG; Start 12/12/16 at 21:00 Tamsulosin HCl (Flomax) 0.4 mg HS PO Last administered on 12/15/16 20:21; Admin Dose 0.4 MG; Start 12/13/16 at 21:00 Pyridostigmine [place] (Mestinon) 60 mg QID@06,12,18,22 PO Last administered on 12/16/16 05:27; Admin Dose 60 MG; Start 12/15/16 at 12:00 MAURICE OSBORNE MD Dec 16, 2016 12:09
[2016-12-16] MEDS: DIGOXIN 0.125 MG TAB PO SCH (12:26)
== END 2016-12-16 13:51 | disposition home health service (06) | DRG 57 ==
LOC: VRC 20:00
PROVIDERS: ADMIT Physical Medicine & Rehabilitation; ATTEND Internal Medicine Nephrology
DX: G70.00 Myasthenia gravis without (acute) exacerbation (principal); S09.90XA Unspecified injury of head, initial encounter; E66.9 Obesity, unspecified; Z68.33 Body mass index [BMI] 33.0-33.9, adult; I10 Essential (primary) hypertension; D64.9 Anemia, unspecified; J45.909 Unspecified asthma, uncomplicated; R53.81 Other malaise; R13.10 Dysphagia, unspecified; Z74.09 Other reduced mobility; W19.XXXA Unspecified fall, initial encounter; Y92.239 Unspecified place in hospital as the place of occurrence of the external cause; Z96.641 Presence of right artificial hip joint
CPT/HCPCS: 76856; 80048; 80053; 81001; 84153; 84154; 85025; 87081; 87086; 92523; 92526; 92610; 97110; 97112; 97116; 97150; 97162; 97166; 97530; 97535; J7512; J7517